=== PATIENT | female | born 1950 | race Hispanic/Latino ===

== ENCOUNTER 2019-01-02 07:17 | Observation (INO) | payer MEDICARE ==
[~2019-01-02] VITALS: Ht 149.9 cm; Wt 83.0 kg
[~2019-01-02 07:17] MED LIST: DICLOFENAC POTA50 MG PO; LEVOTHYROXINE50 MCG PO; LOSARTAN POTASS25 MG PO; OMEPRAZOLE40 MG PO
--- OUTSIDE RECORDS SUMMARY | 2019-01-02 07:18 | XMS REPORT | Clinical Summary ---
Author Author [facility] Address Unknown Phone Unavailable Care Team Providers Care Artisan Plasterer Name Role Phone Elpidio William MD PCP Allergies No Known Allergies Medications End Date Status Medication Sig Dispensed Refills Start Date 11/24/2018 fluticasone propionate 1 spray (50 16 g 0 (FLONASE) 50 mcg total) by 9 mcg/actuation nasal spray Each Nare route 2 (two) times a day for 5 days. 11/23/2018 azithromycin (ZITHROMAX Take 2 6 tablet 0 Z-ALICIA) 250 MG tablet tablets the 9 first day, then 1 tablet daily for 4 days. 11/29/2018 naproxen (NAPROSYN) 500 Take 1 tablet 20 tablet 0 MG tablet (500 mg 9 total) by mouth 2 (two) times a day as needed (pain) for up to 10 days. Active Problems Not on file Encounters Care Team Description Date Type Specialty Lobo Catalan MD Acute non-recurrent maxillary sinusitis (Primary Dx) 11/19/2018 Emergency Emergency Medicine after 01/01/2018 Social History Date Tobacco Use Types Packs/Day Years Used Never Smoker Smokeless Tobacco: Never Used Alcohol Use Drinks/Week oz/Week Comments Defer Alcohol Habits Answer Date Recorded How often do you have a drink containing alcohol? Never 11/19/2018 How many drinks containing alcohol do you have on Not asked a typical day when you are drinking? How often do you have six or more drinks on one Not asked occasion? Sex Assigned at Date Recorded Not on file Industry Job Start Date Occupation Not on file Not on file Not on file Travel End Travel History Travel Start No recent travel history available. Last Filed Vital Signs Time Taken Vital Sign Reading 11/19/2018 9:45 AM CDT Blood Pressure 130/79 11/19/2018 9:45 AM CDT Pulse 74 11/19/2018 8:47 AM CDT Temperature 37.3 C (99.2 F) 11/19/2018 9:45 AM CDT Respiratory Rate 20 11/19/2018 9:45 AM CDT Oxygen Saturation 99% - Inhaled Oxygen - Concentration 11/19/2018 7:57 AM CDT Weight 84.4 kg (186 lb) 11/19/2018 7:57 AM CDT Height 149.9 cm (4' 11") 11/19/2018 7:57 AM CDT Body Mass Index 37.57 Plan of Treatment Health Maintenance Due Date Last Done Comments BREAST CANCER SCREENING 2002 COLONOSCOPY SCREENING 2002 SHINGLES VACCINES (#1) 2002 65+ PNEUMOCOCCAL VACCINE 2017 (1 of 2 - PCV13) INFLUENZA VACCINE 02/01/2019 Procedures Comments Procedure Name Priority Date/Time Associated Diagnosis CT HEAD WO CONTRAST STAT 11/19/2018 8:49 AM CDT RESPIRATORY PATHOGEN Routine 11/19/2018 PANEL 8:37 AM CDT STREP SCREEN CULTURE Routine 11/19/2018 8:37 AM CDT GROUP A STREP, RAPID Routine 11/19/2018 ANTIGEN 8:37 AM CDT INFLUENZA ANTIGEN TEST, Routine 11/19/2018 REFLEX NEGATIVE TO RPP 8:37 AM CDT ECG 12-LEAD Routine 11/19/2018 7:53 AM CDT ECG ED PRELIMINARY Routine 11/19/2018 INTERPRETATION 7:51 AM CDT after 01/01/2018 Results * CT Head Wo Contrast (11/19/2018 8:49 AM CDT) Specimen Narrative Performed At EXAMINATION:CT HEAD WO CONTRAST [facility] CLINICAL HISTORY:headache to R side x 1 week COMPARISON:None. FINDINGS: There is no evidence of acute hemorrhage, mass lesion, or midline shift. The hidalgo-white matter differentiation is preserved with no evidence of acute territorial infarction. Ventricles, sulci, and cisterns are age-appropriate in size and configuration. There is no extra-axial fluid collection. Nonspecific sinus air-fluid level with frothy secretions in the right maxillary sinus are appreciated. Bones, orbits, and soft tissues are unremarkable All CT images were acquired using low-dose technique with automated exposure control. IMPRESSION: No acute intracranial hemorrhage or mass effect. Right maxillary air-fluid level with frothy secretions. Clinical correlation for acute sinusitis is recommended. [facility]-[id number] Procedure Note Hm Interface, Radiology Results Incoming - 11/19/2018 9:00 AM CDT EXAMINATION: CT HEAD WO CONTRAST CLINICAL HISTORY: headache to R side x 1 week COMPARISON: None. FINDINGS: There is no evidence of acute hemorrhage, mass lesion, or midline shift. The hidalgo-white matter differentiation is preserved with no evidence of acute territorial infarction. Ventricles, sulci, and cisterns are age-appropriate in size and configuration. There is no extra-axial fluid collection. Nonspecific sinus air-fluid level with frothy secretions in the right maxillary sinus are appreciated. Bones, orbits, and soft tissues are unremarkable All CT images were acquired using low-dose technique with automated exposure control. IMPRESSION: No acute intracranial hemorrhage or mass effect. Right maxillary air-fluid level with frothy secretions. Clinical correlation for acute sinusitis is recommended. [facility]-[id number] Performing Organization Address City/State/Zipcode Phone Number [facility] [address] [place] [address] * Respiratory pathogen panel (11/19/2018 8:37 AM CDT) Pathologist [facility] Respiratory Negative for all pathogens [place] pathogen panel tested: JAIN Negative for Adenovirus [facility]OSPITAL Negative for Coronavirus HKU1 Negative for Coronavirus NL63 Negative for Coronavirus 229E Negative for Coronavirus OC43 Negative for Human Metapneumovirus Negative for Rhinovirus/Enterovirus Negative for Influenza A Negative for Influenza A/H1 Negative for Influenza A/H3 Negative for Influenza A/H1-2009 Negative for Influenza B Negative for Parainfluenza Virus 1 Negative for Parainfluenza Virus 2 Negative for Parainfluenza Virus 3 Negative for Parainfluenza Virus 4 Negative for Respiratory Syncytial Virus Negative for Bordetella pertussis Negative for Chlamydophila pneumoniae Negative for Mycoplasma pneumoniae This real-time PCR assay detects the presence of nucleic acids (RNA or DNA) for the respiratory pathogens listed. A result of "Not-detected" does not exclude the possibility of the presence of one or more pathogens at concentrations less than the detectable limits of the assay. Comment: Specimen Information Specimen Source: Nares Specimen Site: Other- Detailed Description Required Specimen Nares - Other- Detailed Description Required Performing Organization Address City/[facility]/Zipcode Phone Number [facility] DEPARTMENT OF [address] [place] [address] PATHOLOGY AND [facility] MEDICINE [place] JAIN [address] [place] [address] HOSPITAL * Influenza antigen test, reflex negative to RPP (11/19/2018 8:37 AM CDT) [facility] Influenza Negative for Influenza A/B [place] antigen antigen. RODNEY GERBER. Comment: [facility] Specimen Information Specimen Source: Nares Specimen Site: Other- Detailed Description Required Specimen Nares - Other- Detailed Description Required Performing Organization Address [facility] Phone Number [facility] DEPARTMENT [address] [place] [address] PATHOLOGY AND GENOMIC MEDICINE [place] [address] * Group A strep, rapid antigen (11/19/2018 8:37 AM CDT) [facility] Group A strep, Negative for Group A [place] rapid antigen Streptococcus antigen. JAIN ST. result Comment: [facility] Specimen Information Specimen Source: Throat Specimen Site: Not otherwise specified Specimen Throat - Not otherwise specified Performing Organization Address [facility] Phone Number [facility] DEPARTMENT [address] [place] [address] PATHOLOGY AND GENOMIC MEDICINE [place] [address] [place] [address] [place] [address] [facility] * Strep screen culture (11/19/2018 8:37 AM CDT) [facility] Strep screen No beta hemolytic Streptococci [place] culture isolate isolated JAIN Comment: HOSPITAL Specimen Information Specimen Source: Throat Specimen Site: Not otherwise specified Specimen Throat - Not otherwise specified Performing Organization Address City/[facility]/Zipcode Phone Number [facility] DEPARTMENT [address] AND [facility] MEDICINE [place] JAIN [address] [place] [address] * ECG 12 lead (11/19/2018 7:53 AM CDT) [facility] Ventricular 81 [facility] rate Atrial rate 81 [facility] CO interval 132 [facility] QRSD interval 98 [facility] QT interval 416 [facility] QTC interval 483 [facility] P axis 1 66 [facility] QRS axis 1 3 [facility] T wave axis 23 [facility] EKG impression Normal sinus rhythm-Possible [facility] Left atrial enlargement-Nonspecific ST and T wave abnormality-Prolonged QT-Abnormal ECG-In automated comparison with ECG of 27-JUL-2014 10:28,-T wave inversion no longer evident in Inferior leads-T wave inversion no longer evident in Anterolateral leads- Specimen Narrative Performed At Performing Organization Address City/State/Zipcode Phone Number [facility] MUSE [address] [place] [address] * ECG ED Preliminary Interpretation - Not an Order (11/19/2018 7:51 AM CDT) Narrative Performed At Lobo Catalan MD 11/19/20189:38 AM ECG ED Preliminary Interpretation - Not an Order Performed by: Lobo Catalan MD Authorized by: Lobo Catalan MD ECG reviewed by ED Physician in the absence of a digital recruiter: yes (read at 0753) Previous ECG: Previous ECG:Unavailable Interpretation: Interpretation: non-specific Rate: ECG rate:81 ECG rate assessment: normal Rhythm: Rhythm: sinus rhythm Ectopy: Ectopy: none QRS: QRS axis:Normal QRS intervals:Normal Conduction: Conduction: normal ST segments: ST segments:Normal T waves: T waves: non-specific after 01/01/2018 Insurance Type Payer Benefit Subscriber ID Effective Phone Address Plan / Dates Group O [employer] HE[employer]SPRING CIGNA xxxxxxxx 2018-P HEALTHSPRI resent [facility] MCR ADV Advance Directives Patient has advance care planning documents on file. For more information, tejas e contact: Sander Aly [address] [place] [address]
--- OUTSIDE RECORDS SUMMARY | 2019-01-02 07:19 | XMS REPORT ---
Author Author [facility] Address Unknown Phone Unavailable Care Team Providers Care Drywall Foreman Name Role Phone Unavailable Unavailable Problems This patient has no known problems. Allergies, Adverse Reactions, Alerts This patient has no known allergies or adverse reactions. Medications This patient has no known medications.
[2019-01-02] MEDS ORDERED: ROPIVACAINE 246.25 MG, EPINEPHRINE HCL 1:1000 1ML 0.5 MG, CLONIDINE HCL 0.08 MG, KETORO... INJ ONE ×5 (07:30)
[2019-01-02] MEDS ORDERED: DEXAMETHASONE SOD PHOS 10 MG/1 ML VIAL ONE (08:04)
[2019-01-02] MEDS ORDERED: CELECOXIB 200 MG CAP ONE (08:04)
[2019-01-02] MEDS ORDERED: CEFAZOLIN SOD 1 GM/NS 50ML 100 ML IV ONE (08:05)
[2019-01-02] MEDS ORDERED: GABAPENTIN 300 MG CAP ONE (08:05)
[2019-01-02] MEDS ORDERED: SODIUM CHLORIDE 0.9% 250ML 250 ML ONE (08:25)
[2019-01-02] MEDS ORDERED: VANCOMYCIN HCL 1,000 MG ONE (08:25)
[2019-01-02] MEDS ORDERED: BACITRACIN 50,000 UNIT VIAL ONE (08:26)
[2019-01-02] MEDS ORDERED: TRANEXAMIC ACID 1,000 MG/10 ML ML ONE (08:53)
[2019-01-02] MEDS: SODIUM CHLORIDE 0.9% 1000ML 1,000 ML IV SCH ×2 (11:14→21:14)
[2019-01-02] MEDS ORDERED: DIPHENHYDRAMINE HCL INJ 50 MG/ML VIAL IM/IV PRN (11:15)
[2019-01-02] MEDS ORDERED: PROMETHAZINE HCL (IM) 25 MG/ML VIAL INJ PRN (11:15)
[2019-01-02] MEDS ORDERED: ACETAMINOPHEN 650 MG SUPP PR PRN (11:15)
[2019-01-02] MEDS ORDERED: DOCUSATE SODIUM 100 MG CAP PO PRN (11:15)
[2019-01-02] MEDS ORDERED: HYDROCODONE/APAP 7.5MG-325MG 1 EA TAB PO PRN (11:15)
[2019-01-02] MEDS ORDERED: ZOLPIDEM TARTRATE 5 MG TAB PO PRN (11:15)
[2019-01-02] MEDS ORDERED: ONDANSETRON HCL INJ 2MG/ML 2ML 2 MG/ML VIAL IV PRN (11:15)
[2019-01-02] MEDS ORDERED: HYDROCODONE/APAP 5MG-325MG TAB PO PRN (11:15)
[2019-01-02] MEDS ORDERED: KETOROLAC TROMETHAMINE 30 MG/ML VIAL IV PRN (11:15)
--- OUTSIDE RECORDS SUMMARY | 2019-01-02 11:52 | XMS REPORT | Clinical Summary ---
Author Author [facility] Address Unknown Phone Unavailable Care Team Providers Care Rn Labor And Delivery Name Role Phone Elpidio William MD PCP [...] Clinical correlation for acute sinusitis is recommended. [facility]-[id number] Procedure Note Hm Interface, Radiology Results Incoming [...] Clinical correlation for acute sinusitis is recommended. [facility]-[id number] Performing Organization Address City/State/Zipcode Phone Number [facility] [address] [place] [address] * Respiratory pathogen panel (11/19/2018 8:37 AM CDT) Pathologist [facility] Respiratory Negative for all pathogens [place] pathogen panel tested: [facility]NA[facility]ISM Negative for Adenovirus [facility]OS[facility] Negative for Coronavirus [...] Other- Detailed Description Required Performing Organization Address City/[facility]/Zipcode Phone Number [facility] DEPARTMENT OF [address] [place] [address] PATHOLOGY AND [facility] MEDICINE [place] ANABAPTISM [address] [place] [address] HOSPITAL * Influenza antigen test, reflex negative to RPP (11/19/2018 8:37 AM CDT) [facility] Influenza Negative for Influenza A/B [place] antigen antigen. RODNEY GERBER. Comment: [facility] Specimen Information Specimen Source: Nares Specimen Site: Other- Detailed Description Required Specimen Nares - Other- Detailed Description Required Performing Organization Address [facility] Phone Number [facility] DEPARTMENT [address] [place] [address] PATHOLOGY AND GENOMIC MEDICINE [place] [address] * Group A strep, rapid antigen (11/19/2018 8:37 AM CDT) [facility] Group A strep, Negative for Group A [facility] rapid antigen Streptococcus antigen. [facility]NAB[facility] ST. result Comment: [facility] Specimen Information Specimen Source: Throat Specimen Site: Not otherwise specified Specimen Throat - Not otherwise specified Performing Organization Address [facility] Center[facility]i Phone Number [facility] DEPARTMENT [address] [place] [address] PATHOLOGY AND GENOMIC MEDICINE [place] [address] [place] [address] [place] [address] [facility] * Strep screen culture (11/19/2018 8:37 AM CDT) [facility] Strep screen No beta hemolytic Streptococci [facility] culture isolate isolated [facility]ISM Comment: HOSPITAL Specimen Information Specimen Source: Throat Specimen Site: Not otherwise specified Specimen Throat - Not otherwise specified Performing Organization Address City/[facility]/Zipcode Phone Number [facility] DEPARTMENT [address] AND [facility] MEDICINE [place] ANABAPTISM [address] [place] [address] * ECG 12 lead (11/19/2018 7:53 AM CDT) [facility] Ventricular 81 [facility] rate Atrial rate 81 [facility] [place] interval 132 [facility] QRSD interval 98 [facility] QT interval 416 [facility] QTC interval 483 [facility] P axis 1 66 [facility] QRS axis 1 3 [facility] T wave axis 23 [facility] EKG impression Normal sinus rhythm-Possible [facility] Left atrial enlargement-Nonspecific ST and T wave abnormality-Prolonged QT-Abnormal ECG-In automated comparison with ECG of 27-JUL-2014 10:28,-T wave inversion no longer evident in Inferior leads-T wave inversion no longer evident in Anterolateral leads- Specimen Narrative Performed At Performing Organization Address City/State/Zipcode Phone Number [facility] MUSE [address] [place] [address] * ECG ED Preliminary Interpretation - Not an Order (11/19/2018 7:51 AM CDT) Narrative Performed At Lobo Catalan MD 11/19/20189:38 AM ECG ED Preliminary Interpretation - Not an Order Performed by: Lobo Catalan MD Authorized by: Lobo Catalan MD ECG reviewed by ED Physician in the absence of a blender / cook: yes (read at 0753) Previous ECG: Previous [...] [employer]IGNA HEALTHSPRING CIGNA xxxxxxxx 2018-P HEALTHSPRI resent [facility] ADV Advance Directives Patient has advance care planning documents on file. For more information, tejas e contact: Sander Aly [address] [place] [address]
[2019-01-02] MEDS ORDERED: FENTANYL CITRATE/PF 100MCG/2 ML INJ ONE ×2 (12:08→19:31)
[2019-01-02] MEDS ORDERED: SEVOFLURANE INHAL SOLN 250 ML PEN BTL ONE (14:23)
[2019-01-02] MEDS ORDERED: KETOROLAC TROMETHAMINE 30 MG/ML VIAL ONE (14:23)
[2019-01-02] MEDS ORDERED: LIDOCAINE HCL 2% LOCAL INJ 5 ML SDV VIAL INJ ONE (14:23)
[2019-01-02] MEDS ORDERED: PROPOFOL IV EMULSION 10 MG/ML 20 ML VIAL ONE (14:23)
[2019-01-02] MEDS ORDERED: ONDANSETRON HCL INJ 2MG/ML 2ML 2 MG/ML VIAL ONE (14:23)
--- NOTE | 2019-01-02 15:34 | Operative Report ---
DATE OF PROCEDURE: 01/02/2019 SURGEON: Ad Zafar MD [facility] APPRENTICE: rYn Covarrubias PA-C. PREOPERATIVE DIAGNOSIS: Osteoarthritis, left knee. POSTOPERATIVE DIAGNOSIS: Osteoarthritis, left knee. PROCEDURE: Left total knee arthroplasty. INDICATIONS: The patient is a 68-year-old female, who has advanced osteoarthritis of her left knee. She has failed conservative management and would like to proceed with a left total knee replacement. The risks and benefits of the procedure have been discussed. All of her questions have been answered. She states she understands and wishes to proceed. PROCEDURE IN DETAIL: The patient was brought to the operating room and placed under general anesthetic. She received prophylactic antibiotics, a regional block and tranexamic acid in the holding area. Her left lower extremity was prepped and draped in a sterile manner. A preoperative time-out was performed. The extremity was exsanguinated and a proximal tourniquet was inflated to 300 mmHg. An anterior approach with a medial parapatellar arthrotomy was performed. The incision was cheated a little bit to the medial aspect due to a scar in the lower lateral aspect of her knee. Clear synovial fluid was removed from the joint. Proliferative synovitis was encountered. Soft tissue releases were performed to bring the knee up into flexion with the patella everted. Partial synovectomy was performed. The anterior cruciate ligament, marginal osteophytes and meniscal remnants were excised. Complete loss of articular cartilage primarily involving the medial compartment was noted. A Guzman Persona knee system was used throughout the case. An extramedullary cutting guide was used to resect the proximal tibia. The tibial baseplate was noted to be a size C. The central fin punch was drilled and impacted. Attention was directed towards the distal femur. An intramedullary cutting guide was used to resect the distal femur in 5 degrees of valgus and external rotation referencing off a combination of landmarks including Whitesides line, the epicondylar axis and the posterior condyles. The femoral component was a size 6. The anterior and posterior cuts were made, trial reductions were performed. A 10 mm medial congruent tibial insert provided appropriate soft tissue balancing in both full extension and 90 degrees of flexion. The patella was then resurfaced with a 29 mm patellar button. The thickness was checked before and after and was right around 18 mm. Patellar tracking was noted to be concentric. The trial implants were removed. A 100 mL premixed pericapsular injection was placed into the surrounding soft tissue. The knee was thoroughly irrigated with a shower tip pulsatile lavage. All bone cuts had been irrigated with a spray mixture of diluted polymyxin and vancomycin spray. The components were cemented into place using a single mix of Palacos cement preloaded with antibiotics. Care was taken to remove extravasated cement. The wound was further irrigated while the cement cured. 500 mg of vancomycin powder was then sprinkled into the joint. The arthrotomy was closed with interrupted #1 Ethibond. The knee was put through flexion and extension to ensure a secure closure. The skin was then closed with subcuticular Vicryl and atul. A sterile Aquacel bandage and an Jon wrap were applied. The patient was extubated and transported to the recovery room in stable condition. Blood loss was minimal. All needle and sponge counts were correct. Ad Zafar MD DR/TIFF /[id number]
[2019-01-02] MEDS: CEFAZOLIN SOD 1 GM/NS 50ML 50 ML IV SCH ×2 (16:00→22:00)
--- NOTE | 2019-01-02 16:13 | Diagnostic Imaging Report ---
Knee radiograph, 2 views. History: Status post left total knee replacement. Findings: Postoperative findings of left knee arthroplasty with prosthetic components in anatomic alignment. No fracture or evidence of hardware loosening. Overlying subcutaneous emphysema and surgical skin atul are present. IMPRESSION: Status post left knee replacement in anatomic position. Signed by: Maury Colvin MD on 01/02/2019 4:10 PM
[2019-01-02 16:30] VITALS: BP 128/61
[2019-01-02] MEDS: ACETAMINOPHEN 1000 MG/100 ML IV SCH (18:35)
[2019-01-02] MEDS: ASPIRIN 325 MG TAB PO SCH (18:36)
[2019-01-02] MEDS: CELECOXIB 100 MG CAP PO SCH (18:36)
--- NOTE | 2019-01-02 19:28 | NUR ---
report given to oncoming nurse, pt stable.
[2019-01-02] MEDS ORDERED: EPINEPHRINE HCL 1:1000 1ML 1 MG/ML AMP ONE (19:30)
[2019-01-02] MEDS ORDERED: BUPIVACAINE 0.25% 30ML SDV INJ ONE (19:30)
[2019-01-02] MEDS ORDERED: MIDAZOLAM HCL 2 MG/2 ML VIAL ONE (19:31)
[2019-01-02 20:00] VITALS: BP 130/63
[2019-01-03] VITALS: BP 112/59
[2019-01-03 04:00] VITALS: BP 104/53
[2019-01-03] MEDS: ACETAMINOPHEN 1000 MG/100 ML IV SCH ×2 (05:46)
[2019-01-03] MEDS: CEFAZOLIN SOD 1 GM/NS 50ML 50 ML IV SCH (05:47)
[2019-01-03 06:23] LABS: HEMOGLOBIN 12.5 g/dL (12.0-16.0)
--- NOTE | 2019-01-03 06:32 | Consultation ---
DATE OF CONSULTATION: 01/03/2019 REASON FOR CONSULTATION: Postop medical management. HISTORY OF PRESENT ILLNESS: The patient is a 68-year-old lady, status post left total knee arthroplasty for end-stage osteoarthritis. She is doing very well postoperatively and states that she has minimal pain in the left knee and denies any chest pain, fever, chills, nausea, vomiting, headache, and shortness of breath. PAST MEDICAL HISTORY: Significant for hypothyroidism, hypertension, and reflux disease. MEDICATIONS: See the MAR. ALLERGIES: NONE. SOCIAL HISTORY: Nonsmoker. Nondrinker. . Lives at home with her . FAMILY HISTORY: Heart disease. PHYSICAL EXAMINATION: VITAL SIGNS: She is 97.0, pulse 72, blood pressure 112/59, saturations 98% on room air. GENERAL: No apparent distress, lying in bed. NECK: Supple. No lymphadenopathy. CARDIOVASCULAR: Regular rate and rhythm. LUNGS: Clear to auscultation bilaterally. ABDOMEN: Good bowel sounds. Soft, nontender. EXTREMITIES: No clubbing or cyanosis. Left knee is bandaged. NEUROLOGICAL: Nonfocal. ASSESSMENT AND PLAN: 1. Left knee pain. Continue with physical therapy and postoperative care. 2. Anemia. Check a CBC. 3. Reflux disease. Continue the current reflux medicine. 4. Hypothyroidism. We will continue oral medications at discharge. 5. Hypertension. We will restart blood pressure medicines at discharge. Please see hospital chart for full details. MD ROSA De Jesus/TIFF /[id number]
--- NOTE | 2019-01-03 07:06 | NUR ---
received pt lying in bed with eyes open and TV on. resp even and unlabored. call light within reach.
[2019-01-03] MEDS: SODIUM CHLORIDE 0.9% 1000ML 1,000 ML IV SCH (07:52)
[2019-01-03 08:13] VITALS: BP 133/63
[2019-01-03] MEDS ORDERED: ASPIRIN81 MG PO (08:37)
[2019-01-03 08:51] VITALS: BP 133/63
[2019-01-03] MEDS: ASPIRIN 325 MG TAB PO SCH (09:26)
[2019-01-03] MEDS: CELECOXIB 100 MG CAP PO SCH (09:26)
[2019-01-03] MEDS ORDERED: ACETAMINOPHEN 1000 MG/100 ML IV PRN (11:15)
[2019-01-03 12:14] VITALS: BP 128/66
--- NOTE | 2019-01-03 12:23 | NUR ---
PATIENT DME AND HOME HEALTH COMPANIES PRE-ARRANGED BY DR. VIGIL'S OFFICE. PATIENT WITH HOME HEALTH AND DME CONTACT INFORMATION. PATIENT AWARE TO CALL CM IF ANY PROBLEMS OCCUR WITHIN 3 DAYS POST- DISCHARGE. HOME HEALTH EXPLAINED IN DEPTH WITH SERVICES PROVIDED. PATIENT VERBALLY UNDERSTOOD. THE FOLLOWING HOME HEALTH AND DME COMPANY VERIFIED PATIENT IS ON SERVICE WITH THEM: [facility] (P) [phone] (F) [phone] CM SPOKE TO KEITH WITH DR. VIGIL OFFICE. PATIENT IS SET TO RECEIVE SERVICES 01/04. THERAPY SUPPLY HOUSE: ([facility], [employer]) (P) [phone] (F) [phone] CM SPOKE TO [facility] REGARDING EQUIPMENT DELIVERY. DUE TO [employer] EQUIPMENT WILL NOT BE DELIVERED TO HOME UNTIL TUESDAY. DR. VIGIL REQUESTS PATIENT TO DISCHARGE WITH WALKER SO WALKER WILL BE SUPPLIED BY [employer] [facility] SUPPLIED BY [facility] FORM SIGNED BY PATIENT AND STAPLED TO FACESHEET AND ORDER. WALKER DELIVERED AT BEDSIDE PRIOR TO DISCHARGE PER ORDER REQUEST
[2019-01-03] MEDS ORDERED: ONDANSETRON HCL 4 MG ORAL DISINTEGRATING TAB PO PRN (12:30)
--- NOTE | 2019-01-03 12:48 | NUR ---
PIV removed with tip intact. patient escorted to front lobby door where awaited in private auto. all personal belongings and d/c instructions with patient at time of d/c. RX sent to patient pharmacy per Abdullahi RUDOLPH with Ortho, patient notified.
== END 2019-01-03 12:50 | disposition home health service (06) ==
LOC: OR 07:17 → PACU V 11:17 → MED/SURG 13:03
PROVIDERS: ADMIT Specialist; ATTEND Specialist
DX: M17.12 Unilateral primary osteoarthritis, left knee (principal); E66.01 Morbid (severe) obesity due to excess calories; Z68.41 Body mass index [BMI] 40.0-44.9, adult; Z82.49 Family history of ischemic heart disease and other diseases of the circulatory system; Z80.9 Family history of malignant neoplasm, unspecified; K21.9 Gastro-esophageal reflux disease without esophagitis; I10 Essential (primary) hypertension; E03.9 Hypothyroidism, unspecified; D64.9 Anemia, unspecified
CPT/HCPCS: 27447; 36415; 73560; 85014; 85018; 86850; 86900; 97116 ×2; 97139; 97161; 97530; C1713; G0378 ×2; J0131 ×2; J0171; J0690 ×2; J1100; J1885; J2001; J2250; J2405; J2704; J2795; J3370; J7030; J7050; C1776; J3010